=== PATIENT | female | born 1970 | race Hispanic/Latino ===

== ENCOUNTER → 2025-04-13 | Outpatient (REF) | payer OTHER | LOC: US 08:02 | PROVIDERS: ATTEND Family Medicine | DX: R10.9 Unspecified abdominal pain (principal) | CPT/HCPCS: 76700 ==

== ENCOUNTER → 2025-05-28 | Outpatient (REF) | payer OTHER | LOC: CT 11:41 | PROVIDERS: ATTEND Family Medicine | DX: R43.0 Anosmia (principal); R43.2 Parageusia | CPT/HCPCS: 70486 ==